=== PATIENT | female | born 1995 | race Hispanic/Latino ===

== ENCOUNTER 2022-12-28 00:39 | Emergency (ER) | payer BC, MEDICAID, OTHER ==
[~2022-12-28] VITALS: Ht 154.9 cm; Wt 75.7 kg
[2022-12-28 01:07] LABS: BASOPHILS % (AUTO) 0.3 % (0.0-5.0); EOSINOPHILS % (AUTO) 1.6 % (0.0-8.0); LYMPHOCYTES % (AUTO) 34.1 % (21.0-51.0); MEAN CORPUSCULAR HEMOGLOBIN 27.6 pg (27.0-33.0); MEAN CORPUSCULAR HGB CONC 33.2 g/dL (32.0-36.0); MEAN CORPUSCULAR VOLUME 83.2 fL (79-99); MONOCYTES % (AUTO) 6.6 % (3.0-13.0); NEUTROPHILS % (AUTO) 56.8 % (40.0-77.0); PLATELET COUNT (AUTO) 204 K/uL (130-400); RED BLOOD CELL COUNT(AUTO) 4.57 MIL/uL (4.00-5.50); RED CELL DISTRIBUTION WIDTH 14.4 % (11.0-15.5); WHITE BLOOD COUNT (AUTO) 10.6 K/uL (4.8-10.8)
[2022-12-28 01:21] LABS: CREATININE 0.8 mg/dL (0.5-1.5); POTASSIUM 3.9 mmol/L (3.5-5.1)
[2022-12-28 01:28] LABS: ALBUMIN 3.9 g/dL (3.5-5.0); TOTAL PROTEIN, SERUM 7.2 g/dL (6.0-8.3)
[2022-12-28] MEDS ORDERED: IBUP-1493 PO (01:31)
[2022-12-28 03:20] VITALS: BP 115/78
== END 2022-12-28 03:36 | disposition home or self-care (01) ==
LOC: EDH 00:39
DX: R07.89 Other chest pain (principal); F41.9 Anxiety disorder, unspecified; M54.9 Dorsalgia, unspecified
CPT/HCPCS: 36415; 71045; 80053; 81025; 84484; 85025; 93005

== ENCOUNTER → 2023-01-07 | Outpatient (CLI) | payer MEDICAID ==
[~2023-01-07] MED LIST: IBUP-1493 PO
[2023-01-07 16:19] LABS: BASOPHILS % (AUTO) 0.2 % (0.0-5.0); EOSINOPHILS % (AUTO) 0.8 % (0.0-8.0); HEMATOCRIT 43.8 % (36-48); LYMPHOCYTES % (AUTO) 23.2 % (21.0-51.0); MEAN CORPUSCULAR HEMOGLOBIN 27.1 pg (27.0-33.0); MEAN CORPUSCULAR VOLUME 84.7 fL (79-99); MONOCYTES % (AUTO) 5.5 % (3.0-13.0); NEUTROPHILS % (AUTO) 69.8 % (40.0-77.0); PLATELET COUNT (AUTO) 220 K/uL (130-400); RED BLOOD CELL COUNT(AUTO) 5.17 MIL/uL (4.00-5.50); RED CELL DISTRIBUTION WIDTH 14.9 % (11.0-15.5)
[2023-01-07 17:24] LABS: ERYTHROCYTE SEDIMENTATION RATE 16 MM/HR (0-20)
== END | disposition home or self-care (01) ==
LOC: LAB 13:33
PROVIDERS: ATTEND Internal Medicine Cardiovascular Disease
DX: I39 Endocarditis and heart valve disorders in diseases classified elsewhere (principal); R78.81 Bacteremia; R07.9 Chest pain, unspecified; R00.2 Palpitations
CPT/HCPCS: 36415; 85025; 85651; 86140; 87040

== ENCOUNTER → 2023-01-30 | Outpatient (CLI) | payer MEDICAID | END | disposition home or self-care (01) | LOC: RAH 12:46 | PROVIDERS: ATTEND Internal Medicine Cardiovascular Disease | DX: R00.2 Palpitations (principal) | CPT/HCPCS: 93306 ==

== ENCOUNTER 2023-03-21 18:40 | Emergency (ER) | payer MEDICAID ==
[~2023-03-21] VITALS: Ht 154.9 cm; Wt 69.9 kg
[2023-03-21 21:53] LABS: APPEARANCE,URINE CLEAR (CLEAR); BILIRUBIN,URINE NEGATIVE (NEGATIVE); COLOR,URINE LIGHT-YELLOW (YELLOW); GLUCOSE, URINE (UA) NEGATIVE (NEGATIVE); KETONES,URINE NEGATIVE (NEGATIVE); LEUKOCYTE ESTERASE ,URINE 75 Leu/uL (NEGATIVE); NITRATE,URINE NEGATIVE (NEGATIVE); OCCULT BLOOD,URINE NEGATIVE (NEGATIVE); PH,URINE 6.5 (5.0-8.0); PROTEIN,URINE NEGATIVE (NEGATIVE); UROBILINOGEN,URINE 0.2 mg/dL (0.2-1.0)
[2023-03-21 21:57] LABS: HCG,QUALITATIVE URINE NEGATIVE (NEGATIVE)
[2023-03-21 21:58] LABS: ADD UA MICROSCOPIC YES
[2023-03-21 22:00] LABS: BACTERIA,URINE RARE /HPF (None Seen); MUCUS,URINE RARE LPF (None Seen); SQUAMOUS EPITHELIAL CELL,UR FEW /HPF (0-2)
[2023-03-21] MEDS ORDERED: CEFTRIAXONE 1G VIAL IM ONE (22:00)
[2023-03-21] MEDS ORDERED: FLUCONAZOLE 100 MG TAB PO ONE (22:00)
[2023-03-21] MEDS ORDERED: AZITHROMYCIN 250 MG TABLET PO ONE (22:00)
[2023-03-21 22:14] VITALS: BP 120/72; PULSE 90; RESP 18; O2SAT 100
[2023-03-21] MEDS ORDERED: FLUC150T PO (22:27)
[2023-03-21] MEDS ORDERED: CEFD300C3 PO (22:27)
[2023-03-21] MEDS ORDERED: CEFTRIAXONE 500MG VIAL IM ONE (23:00)
[2023-03-22 10:21] LABS: RAPID PLASMA REAGIN NONREACTIVE (NONREACTIVE)
[2023-03-22 14:22] LABS: HEPATITIS B SURFACE ANTIGEN Non-Reactive (Nonreactive)
[2023-03-22 14:32] LABS: HEPATITIS A IGM ANTIBODY Non-Reactive (Nonreactive); HEPATITIS B CORE IGM ANTIBODY Non-Reactive (Negative); HEPATITIS C ANTIBODY Non-Reactive (Nonreactive)
== END 2023-03-21 22:55 | disposition home or self-care (01) ==
LOC: EDH 18:40
DX: N39.0 Urinary tract infection, site not specified (principal); A64 Unspecified sexually transmitted disease; B37.31 Acute candidiasis of vulva and vagina
CPT/HCPCS: 99283; 86592; 87088; 80074; 87797; 86694; 86695 ×2; 86701; 87390; 87486; 81001; 81025; 36415; 96372; J0696 ×2

== ENCOUNTER 2024-07-21 01:32 | Emergency (ER) | payer BC, MEDICAID ==
[~2024-07-21] VITALS: Ht 154.9 cm; Wt 83.9 kg
[~2024-07-21 01:32] MED LIST changes: +CEFD300C3 PO; +FLUC150T PO
--- NOTE | 2024-07-21 01:53 | NUR ---
Zach heath in ED - 07/21/24 at 0158 by [email or web address] PATIENT STATES JUST WENT TO BATHROOM, CAN NOT PROVIDE A URINE SAMPLE AT THIS TIME.
[2024-07-21 02:20] LABS: APPEARANCE,URINE CLEAR (CLEAR); BILIRUBIN,URINE NEGATIVE (NEGATIVE); COLOR,URINE LIGHT-YELLOW (YELLOW); GLUCOSE, URINE (UA) NEGATIVE (NEGATIVE); KETONES,URINE NEGATIVE (NEGATIVE); LEUKOCYTE ESTERASE ,URINE NEGATIVE Leu/uL (NEGATIVE); NITRATE,URINE NEGATIVE (NEGATIVE); OCCULT BLOOD,URINE NEGATIVE (NEGATIVE); PROTEIN,URINE NEGATIVE (NEGATIVE); UROBILINOGEN,URINE 0.2 mg/dL (0.2-1.0)
[2024-07-21 02:22] LABS: ADD UA MICROSCOPIC NO
[2024-07-21 02:23] LABS: HCG,QUALITATIVE URINE NEGATIVE (NEGATIVE)
--- NOTE | 2024-07-21 02:33 | ERN ---
ED Note History of Present Illness Stated Complaint: C/O EPIGASTRIC PAIN X 2 DAYS Chief Complaint: Abdominal Pain Time Seen by MD: 01:36 Time Seen by Midlevel: 01:36 Dictation: The patient is a 29-year-old female with a history of appendectomy, hiatal hernia who presents to the emergency department with complaints of epigastric pain and nausea onset two days ago. Patient denies any fevers, vomiting or constipation, diarrhea. Patient reports that she was told about her hiatal hernia month ago in is seeing a specialist in [place] where she has a appointment in August for a surgery Allergies: Coded Allergies: No Known Allergies (Unverified Allergy, Unknown, 12/28/22) Home Meds Active Scripts Pantoprazole Sodium (Protonix) 40 Mg Tablet.dr, 1 TAB PO DAILY for 30 Days, #30 TAB 0 Refills Prov:TREMAINE LOMAX MD 07/21/24 Fluconazole (Diflucan) 150 Mg Tablet, 150 MG PO Q72HR, #3 TAB Take 1 tab by mouth every 72 hours for total of 3 doses. Prov:STAN LOPES NUCLEAR MEDICAL TECHNOLOGIST 03/21/23 Cefdinir (Cefdinir) 300 Mg Capsule, 300 MG PO BID for 10 Days, #20 CAP Prov:STAN LOPES NUCLEAR MEDICAL TECHNOLOGIST 03/21/23 Ibuprofen (Motrin/Advil) 800 Mg Tab, 800 MG PO TID, #30 TAB Prov:DEISY OCAMPO MD 12/28/22 Past Medical History Past Medical History: Other Additional Past Medical Hx: HERNIA Surgical History: Appendectomy Family History: Negative Social History: Negative, Lives with family LMP: Jul 06, 2024 RN Note Reviewed/Agreed w/PFSH: Yes Review of System Dictation Constitutional: Negative for fever,chills, and weight loss Eyes: Negative for injury, pain,redness, and discharge ENT: Negative for injury,pain or swelling Cardiovascular: Negative for chest pain, palpitations, and edema Respiratory: Negative for shortness of breath, cough, and wheezing, Abdomen/GI: Negative for vomiting, diarrhea, and constipation positive for abdominal pain, nausea Back: Negative for injury and pain : Negative for injury, bleeding and discharge MS/Extremity: Negative for injury and deformity Skin: Negative for rash, and discoloration Neuro: Negative for headache, weakness, numbness, tingling, and seizure Psych: Negative for suicide ideation, homicidal ideation, and hallucinations Initial Vital Sign VS Vital Signs Date Time Temp Pulse Resp B/P (MAP) Pulse Ox O2 Delivery O2 Flow Rate FiO2 07/21/24 01:33 98.2 92 20 119/73 99 Room Air Physical Exam Dictation Vital Signs reviewed General Appearance: Alert, oriented x 3, no acute distress, well developed, nourished. Head and Face: non-traumatic. Eyes: PERRL, pink conjunctivas, eyelid no trauma, anterior chamber with arcus senilis. Ears: Pinnas intact and no signs of trauma or erythema ear canals clear and no discharge TM no erythema Nose: No discharge, no bleeding. Oropharynx: Mouth normal, tongue pink. pharynx clear,no erythema, tonsils no exudates, no abscesses noted, mucous membrane moist Neck: Supple, non-tender, no thyromegaly, no masses, no JVD, no bruits Breast:Deferred Chest:No tenderness, no crepitus, no paradoxical movement, no retractions Lungs:Clear, well-ventilated, symmetric, no rales, no wheezing, no rhonchi, no stridor, good breath sounds bilaterally Heart: Regular rate, regular rhythm, no murmur, no gallops Vascular: no peripheral edema, Abdomen: Soft, positive bowel sounds, nondistended, no guarding, nontender, no rebound, no masses no hepatomegaly, no splenomegaly, no Naylor's sign, no hernias. Rectal: Deferred Genital: Deferred Neurological: Normal speech, motor function intact, sensory function intact Musculoskeletal: Neck nontender, full range of motion, back nontender, full r karen of motion, Extremities: nontender, full range of motion Skin: Color pink, dry, no turgor, no rash, no lacerations, no abrasions, no contusions. Lymphatic: Deferred Results (Laboratory/Radiology) Laboratory/Radiology Laboratory Tests Test 07/21/24 02:00 07/21/24 02:26 Urine Color LIGHT-YELLOW (YELLOW) Urine Appearance CLEAR (CLEAR) Urine pH 7.0 (5.0-8.0) Urine Specific [place] 1.020 (1.001-1.031) Urine Protein NEGATIVE mg/dL (NEGATIVE) Urine Glucose (UA) NEGATIVE mg/dL (NEGATIVE) Urine Ketones NEGATIVE mg/dL (NEGATIVE) Urine Occult Blood NEGATIVE (NEGATIVE) Urine Nitrate NEGATIVE (NEGATIVE) Urine Bilirubin NEGATIVE mg/dL (NEGATIVE) Urine Urobilinogen 0.2 mg/dL (0.2-1.0) Urine Leukocyte Esterase NEGATIVE Yuli/uL Urine HCG, Qualitative NEGATIVE (NEGATIVE) White Blood Count 10.8 K/uL (4.8-10.8) Red Blood Count 4.91 MIL/uL (4.00-5.50) Hemoglobin 13.4 g/dL (12.0-16.0) Hematocrit 41.2 % (36-48) Mean Corpuscular Volume 83.9 fL (79-99) Mean Corpuscular Hemoglobin 27.3 pg (27.0-33.0) Mean Corpuscular Hemoglobin Concent 32.5 g/dL (32.0-36.0) Red Cell Distribution Width 13.5 % (11.0-15.5) Platelet Count 239 K/uL (130-400) Mean Platelet Volume 9.6 fL (7.5-10.5) Immature Granulocyte % (Auto) 0.7 % (0-1) Neutrophils (%) (Auto) 51.4 % (40.0-77.0) Lymphocytes (%) (Auto) 38.7 % (21.0-51.0) Monocytes (%) (Auto) 7.1 % (3.0-13.0) Eosinophils (%) (Auto) 1.8 % (0.0-8.0) Basophils (%) (Auto) 0.3 % (0.0-5.0) Neutrophils # (Auto) 5.5 K/uL (1.8-7.7) Lymphocytes # (Auto) 4.2 K/uL (1.0-4.8) Monocytes # (Auto) 0.8 K/uL (0.1-1.0) Eosinophils # (Auto) 0.19 K/uL (0.00-0.70) Basophils # (Auto) 0.03 K/uL (0.00-0.20) Absolute Immature Granulocyte (auto 0.08 K/uL (0-1) Nucleated Red Blood Cells 0.0 % (0.0-0.19) Sodium Level 142 mmol/L (136-145) Potassium Level 3.8 mmol/L (3.5-5.1) Chloride Level 104 mmol/L (101-111) Carbon Dioxide Level 29 mmol/L (21-32) Blood Urea Nitrogen 10 mg/dL (7-18) Creatinine 0.9 mg/dL (0.5-1.0) Glomerular Filtration Rate Calc 90 mL/min (>90) Random Glucose 112 mg/dL (70-105) H Total Calcium 9.7 mg/dL (8.5-10.1) Total Bilirubin 0.3 mg/dL (0.2-1.0) Direct Bilirubin < 0.1 mg/dL (0.0-0.3) Aspartate Amino Transf (AST/SGOT) 20 U/L (10-37) Alanine Aminotransferase (ALT/SGPT) 45 U/L (12-78) Alkaline Phosphatase 102 U/L (50-136) Total Protein 7.6 g/dL (6.0-8.3) Albumin 3.8 g/dL (3.5-5.0) Lipase 51 U/L (16-77) Labs Reviewed?: Yes ED Course ED Course Orders Procedure Category Date Status Time Urinalysis Profile LAB 07/21/24 Complete 02:06 ,Urine Test LAB 07/21/24 Complete 02:06 Cbc With Differential LAB 07/21/24 Complete 02:08 0.9%Nacl 1000ml (Ns PHA 07/21/24 Complete 1000ml) 02:30 Ondansetron 4mg Inj PHA 07/21/24 Complete (Zofran 4mg Inj) 02:30 Pantoprazole 40mg Inj PHA 07/21/24 Complete (Protonix 40mg Inj 02:30 Lipase LAB 07/21/24 Complete 02:08 Basic Metabolic Panel LAB 07/21/24 Complete 02:08 Hepatic Function Panel LAB 07/21/24 Complete 02:08 Hydromorphone 0.5mg PHA 07/21/24 In Process Syg (Dilaudid 0.5mg 04:00 Current Medications Medications (Trade) Dose Ordered Sig/Mendez Route PRN Reason Start Time Stop Time Status Last Admin Dose Admin Hydromorphone HCl (DiLAUDid 0.5MG INJ) 0.5 mg ONCE ONCE IVP 07/21/24 04:00 07/21/24 04:01 Ondansetron HCl (zoFRAN 4MG INJ) 4 mg ONCE ONCE IVP 07/21/24 02:30 07/21/24 02:31 DC 07/21/24 02:35 Pantoprazole Sodium (PROTonix 40MG INJ) 40 mg ONCE ONCE IVP 07/21/24 02:30 07/21/24 02:31 DC 07/21/24 02:35 Sodium Chloride 1,000 ml @ 0 mls/hr ONCE ONCE IV 07/21/24 02:30 07/21/24 02:31 DC 07/21/24 02:35 Vital Signs Date Time Temp Pulse Resp B/P (MAP) Pulse Ox O2 Delivery O2 Flow Rate FiO2 07/21/24 01:33 98.2 92 20 119/73 99 Room Air Medical Decision Making MDM The patient is a 29-year-old female with a history of appendectomy, hiatal hernia who presents to the emergency department with complaints of epigastric pain and nausea onset two days ago. Patient denies any fevers, vomiting or constipation, diarrhea. Patient reports that she was told about her hiatal hernia month ago in is seeing a specialist in [place] where she has a appointment in August for a surgery DX & DISP Disposition: Discharge Departure Impression: Primary Impression: Gastroesophageal reflux disease Additional Impression: Hiatal hernia Condition: Stable Scripts Acetaminophen with Codeine (Acetaminophen-Cod #3 Tablet) 300 Mg-30 Mg Tablet 1 TAB PO Q6HPRN PRN for pain for 7 Days, #28 TAB 0 Refills Prov: TREMAINE LOMAX MD 07/21/24 Pantoprazole Sodium (Protonix) 40 Mg Tablet.dr 1 TAB PO DAILY for 30 Days, #30 TAB 0 Refills Prov: TREMAINE LOMAX MD 07/21/24 Additional Instructions: Patient and the caregiver have been informed of all the diagnostic tests and the imaging conducted during the today's visit to the emergency room and has verbalized understanding of the results I have personally reviewed and interpreted all diagnostic exams performed here in the ER today as well as the vital signs documented by the nursing staff. The patient is now being discharged to home and should follow up with the primary care physician or the specialist as directed by the ER staff. Follow-up with primary care provider in 1 to 2 days. Take medications as directed here in the emergency room. Okay to continue home medications unless otherwise discussed during your visit in the emergency room today. Return to your nearest emergency room if symptoms worsen or if there is no improvement. Call 911 if you need immediate assistance. Take Tylenol or Motrin [id number] as needed and if no contraindications are present. Increase oral hydration. A wound culture or urine culture was ordered here in the emergency room department please follow-up with primary care provider and advise them to get repeat ports from our facility. If you had any Dago wrap/splints that were applied here, please do not remove them until you see your primary care or specialty. Patient must follow up with her GI specialist and general surgeon for moderate hiatal hernia and ongoing pain to be evaluated as soon as possible. Referrals: EDEN TRAN (PCP) YOLANDA PARR Jul 21, 2024 02:33 TREMAINE LOMAX MD Jul 21, 2024 03:29
[2024-07-21 02:34] LABS: BASOPHILS # (AUTO) 0.03 K/uL (0.00-0.20); BASOPHILS % (AUTO) 0.3 % (0.0-5.0); EOSINOPHILS # (AUTO) 0.19 K/uL (0.00-0.70); EOSINOPHILS % (AUTO) 1.8 % (0.0-8.0); HEMATOCRIT 41.2 % (36-48); IMMATURE GRANULOCYTE ABSOLUTE 0.08 K/uL (0-1); LYMPHOCYTES # (AUTO) 4.2 K/uL (1.0-4.8); LYMPHOCYTES % (AUTO) 38.7 % (21.0-51.0); MEAN CORPUSCULAR HEMOGLOBIN 27.3 pg (27.0-33.0); MEAN CORPUSCULAR HGB CONC 32.5 g/dL (32.0-36.0); MEAN CORPUSCULAR VOLUME 83.9 fL (79-99); MONOCYTES # (AUTO) 0.8 K/uL (0.1-1.0); MONOCYTES % (AUTO) 7.1 % (3.0-13.0); NEUTROPHILS # (AUTO) 5.5 K/uL (1.8-7.7); NEUTROPHILS % (AUTO) 51.4 % (40.0-77.0); PLATELET COUNT (AUTO) 239 K/uL (130-400); RED BLOOD CELL COUNT(AUTO) 4.91 MIL/uL (4.00-5.50); RED CELL DISTRIBUTION WIDTH 13.5 % (11.0-15.5); WHITE BLOOD COUNT (AUTO) 10.8 K/uL (4.8-10.8)
[2024-07-21] MEDS: ondanSETRON 4MG INJ IVP ONE (02:35)
[2024-07-21] MEDS: 0.9%NACL 1000ML 1,000 ML IV ONE (02:35)
[2024-07-21] MEDS: PANTOPrazole 40 MG/VIAL IVP ONE (02:35)
[2024-07-21 02:45] LABS: CARBON DIOXIDE 29 mmol/L (21-32); CHLORIDE 104 mmol/L (101-111); CREATININE 0.9 mg/dL (0.5-1.0); GLOMERULAR FILTR. RATE CALC 90 mL/min (>90); GLUCOSE,RANDOM 112 mg/dL (70-105); POTASSIUM 3.8 mmol/L (3.5-5.1); SODIUM SERUM 142 mmol/L (136-145); UREA NITROGEN, BLOOD 10 mg/dL (7-18)
[2024-07-21 02:53] LABS: ALANINE AMINOTRANSFERASE 45 U/L (12-78); ALBUMIN 3.8 g/dL (3.5-5.0); ASPARTATE AMINOTRANSFERASE 20 U/L (10-37); BILIRUBIN,DIRECT < 0.1 mg/dL (0.0-0.3); BILIRUBIN,TOTAL 0.3 mg/dL (0.2-1.0); TOTAL PROTEIN, SERUM 7.6 g/dL (6.0-8.3)
[2024-07-21] MEDS ORDERED: PANT40TA PO (03:29)
[2024-07-21] MEDS ORDERED: ACET-2079 PO (03:53)
[2024-07-21] MEDS: hydroMORPHone 0.5 MG SYG (0.5MG/0.5ML) IVP ONE (04:02)
[2024-07-21 04:33] VITALS: BP 113/75; PULSE 79; RESP 18; TEMP 98.4; O2SAT 98
== END 2024-07-21 04:35 | disposition home or self-care (01) ==
LOC: EDH 01:32
DX: K21.9 Gastro-esophageal reflux disease without esophagitis (principal); K44.9 Diaphragmatic hernia without obstruction or gangrene; Z79.1 Long term (current) use of non-steroidal anti-inflammatories (NSAID); Z79.899 Other long term (current) drug therapy; Z90.49 Acquired absence of other specified parts of digestive tract
CPT/HCPCS: 99284; 96374; 96375; 96361; 80076; 80048; 83690; 85025; 81003; 81025; 36415; J7030; J2405; J2470; J1171

== ENCOUNTER → 2024-07-22 | Outpatient (CLI) | payer BC ==
[~2024-07-22] MED LIST changes: +ACET-2079 PO; +PANT40TA PO
--- NOTE | 2024-07-22 11:14 | HMCIMG ---
UPPER GI TRACT, WO KUB REASON: DIAPHRAGMATIC HERNIA W/O OBSTRUCTION OR GANGRENE. COMPARISON: None TECHNIQUE: Biphasic upper GI series study was performed. FINDINGS: There is no obstruction to the antegrade passage of barium from mouth through jejunum. A normal esophageal stripping wave is seen. There is sliding hiatal hernia noted measuring 1.5 x 2 cm. There is spontaneous mild gastroesophageal reflux into the level of the upper thoracic esophagus. Stomach is well distended without ulceration or mass lesion. Duodenal bulb and duodenal sweep are unremarkable. IMPRESSION: No obstruction. There is sliding hiatal hernia noted measuring 1.5 x 2 cm. There is spontaneous mild gastroesophageal reflux into the level of the upper thoracic esophagus.
== END | disposition home or self-care (01) ==
LOC: RAH 09:47
PROVIDERS: ATTEND Surgery
DX: K44.9 Diaphragmatic hernia without obstruction or gangrene (principal); K21.9 Gastro-esophageal reflux disease without esophagitis
CPT/HCPCS: 74240